=== PATIENT | female | born 1965 | race Caucasian/White ===

== ENCOUNTER → 2016-11-18 | Day surgery (SDC) | payer OTHER ==
[2016-11-16 15:32] VITALS: BMI 29.0
[~2016-11-18] VITALS: Ht 152.4 cm; Wt 68.2 kg
[~2016-11-18] MED LIST: ATROPINE SULFATE 0.1 MG/ML 5ML SYR IV PRN; BIOTCAP2 PO; BUPR-83 PO; CHOL20007 PO; CYCL10TA6 PO; CYNI1000 INJ; DIAZ10TA3 PO; DICL-201 PO; DIPH25CA37 PO; DULO60CA44 PO; ELUX1TAB2 PO; EpHEDrine SULFATE INJ 50 MG/ML AMP IV PRN; FSMD/70 PO; GLYCOPYRROLATE INJ 0.2 MG/ML VIAL ONE; HYDR200T5 PO; HYDR50CA PO; KETAMINE HCL INJ 50 MG/ML 10 ML VIAL ONE; LEVO200T PO; LORA10TA44 PO; MIDAZOLAM HCL 1 MG/ML 2ML VIAL ONE; OXYC20TA50 PO; PANT40TA PO; POTA10CA28 PO; PROPOFOL IV EMULSION 10 MG/ML 20 ML VIAL IV ONE; SODIUM CHLORIDE 0.9% 500ML 500 ML IV ONE; TOPI200T6 PO; TYLOTC500 PO; VNTHFA/IN INH; ZIPR1CAP6 PO; ZNTT/150 PO; ZOLP10TA PO; [UNRECOGNIZED DRUG - CODE] IV
[2016-11-18 09:30] VITALS: Ht 152.4 cm; Wt 68.2 kg
--- NOTE | 2016-11-18 10:06 | Endo History and Physical ---
History & Physical Date of Service: Nov 18, 2016. Chief Complaint: ABD PAIN Referring Physician: CHAPARRITA ANN History of Present Illness 51 yo with substernal burning and epigastric pain presenting for EGD Past Medical History Gastrointestinal Disorder, Blood Dyscrasias, Seizure Disorder, Hypertension, Depression Past Surgical History Hx Cardiac Surgery: No Hx Internal Defibrillator: No Hx Pacemaker: No Hx Abdominal Surgery: No Hx of Implantable Prosthesis: No Hx Post-Op Nausea and Vomiting: No Hx Cancer Surgery: Yes (VARSHA BSO) Hx Thoracic Surgery: No Hx Orthopedic: Yes (LT KNEE SCOPE, RT WRIST CYST REMOVAL) Hx Urinary Tract Surgery: No Family History None Social History Smoking Status: Never Smoker Hx Substance Use: No Hx Alcohol Use: Yes (OCCASIONAL) Allergies Coded Allergies: Amitriptyline (Verified Allergy, Unknown, NIGHT TERRORS AND HALLUCINATIONS , 11/18/16) Lidocaine (Verified Allergy, Unknown, "STOPPED HEART" DURING DENTAL PROCEDURE, 11/18/16) Sulfa Antibiotics (Verified Allergy, Unknown, DIFFICULTY BREATHING AND ITCHING, 11/18/16) Current Medications Reported Home Medications Medications Dose Route/Sig Max Daily Dose Days Date Category Dose Instructions Flexeril (Cyclobenzaprine Hcl) 10 Mg Tab 10 Mg PO TID PRN 11/16/16 Reported Oxycontin (Oxycodone Hcl) 20 Mg Tab 20 Mg PO Q12 PRN 11/16/16 Reported Fosamax+D 70MG/2800 Iu (Alendronate Sodium/Vitamin D3) 70 Mg Tab 1 Tablet PO WK 11/16/16 Reported TUESDAY Allergy (Loratadine) 10 Mg Tab 1 Tab PO QAM 11/16/16 Reported Viberzi (Eluxadoline) 100 Mg Tab 100 Mg PO QAM 11/16/16 Reported Vitamin D3 (Cholecalciferol) 2,000 Unit Tab 1 Tab PO QPM 11/16/16 Reported Micro-K Ext Rel (Potassium Chloride) 10 Meq Capcr 10 Meq PO BID 11/16/16 Reported Voltaren (Diclofenac Sodium) 75 Mg Tabcr 75 Mg PO BID 11/16/16 Reported WITH FOOD Wellbutrin (Bupropion HCl) 100 Mg Tab 100 Mg PO BID 11/16/16 Reported Geodon (Ziprasidone Hcl) 40 Mg Cap 40 Mg PO HS 11/16/16 Reported Topamax (Topiramate) 200 Mg Tab 200 Mg PO BID 11/16/16 Reported Synthroid (Levothyroxine Sodium) 200 Mcg Tab 200 Mcg PO QAM 11/16/16 Reported Ambien (Zolpidem Tartrate) 10 Mg Tab 10 Mg PO HS 05/06/14 Reported Cyanocobalamin 1,000 Mcg/Ml Inj 1 Ml INJ WK 05/06/14 Reported SUNDAYS Protonix (Pantoprazole Sodium) 40 Mg Tab 40 Mg PO QPM 05/06/14 Reported Biotin 5000 (Biotin) 5 Mg Cap 1 Cap PO QAM 05/06/14 Reported Tylenol (Acetaminophen) 500 Mg Tab 1,000 Mg PO PRIOR TO BENLYSTA 05/06/14 Reported Benadryl (Diphenhydramine Hcl) 25 Mg Cap 1 Cap PO PRIOR TO BENLYSTA 05/06/14 Reported Benlysta (Belimumab) 400 Mg Inj 700 Mg IV Q 4 WEEKS 05/06/14 Reported Zantac (Ranitidine HCl) 150 Mg Tab 150 Mg PO BID 05/06/14 Reported Valium (Diazepam) 10 Mg Tab 10 Mg PO Q8H PRN 05/06/[address] WITH MEDICATION Ventolin Hfa (Albuterol) 200 Puffs/06654 Mcg Aers 2 Puffs INH Q4H PRN 05/06/14 Reported Plaquenil (Hydroxychloroquine Sulfate) 200 Mg Tab 200 Mg PO BID 05/06/14 Reported Cymbalta (Duloxetine Hcl) 60 Mg Cap 60 Mg PO QAM 05/06/14 Reported Vistaril (Hydroxyzine Pamoate) 50 Mg Cap 2 Cap PO HS 05/06/14 Reported Vital Signs Weight (Kilograms): 68.18 Height (Feet): 5 Height (Inches): 0 Date Time Temp Pulse Resp B/P Pulse Ox O2 Delivery O2 Flow Rate FiO2 11/18/16 09:31 36.5 81 18 139/86 99 Room Air Physical Exam General Appearance: WD/WN, no apparent distress Respiratory/Chest: Auscultation: breath sounds normal, CTA except as noted, no wheezing Cardiovascular: Apical Impulse: not displaced Heart Auscultation: RRR, normal S1, normal S2 Abdomen: Bowel Sounds: normal Inspection & Palpation: soft, non-distended, no tenderness, guarding & rebound Assessment and Plan 51 yo presenting for EGD due to abdominal pain and epigastric burning
--- NOTE | 2016-11-18 10:59 | GI REPORT ---
Procedure Date: 11/18/2016 10:01 AM Procedure: Upper GI endoscopy Indications: Iron deficiency anemia Medicines: General Anesthesia Complications: No immediate complications. Estimated blood loss: None. Estimated Blood Loss: Estimated blood loss: none. Procedure: Pre-Anesthesia Assessment: - Pre-Anesthesia Assessment: - Prior to the procedure, a History and Physical was performed, and patient medications, allergies and sensitivities were reviewed. The patient's tolerance of previous anesthesia was reviewed. Please see [facility] for complete details. - The risks and benefits of the procedure and the sedation options and risks were discussed with the patient. All questions were answered and informed consent was obtained. - Patient identification and proposed procedure were verified prior to the procedure by the physician and the nurse. The procedure was verified in the pre-procedure area in the procedure room. After obtaining informed consent, the endoscope was passed carefully and meticuously under direct vision and only advanced when the lumen was clearly identified, C02 insuflation was utilized throughout the entirity of the procedure. Throughout the procedure, the patient's blood pressure, pulse, and oxygen saturations were monitored continuously. After obtaining informed consent, the endoscope was passed under direct vision. Throughout the procedure, the patient's blood pressure, pulse, and oxygen saturations were monitored continuously. The scope was introduced through the mouth, and advanced to the second part of duodenum. The upper GI endoscopy was accomplished without difficulty. The patient tolerated the procedure well. Findings: The examined esophagus was normal. The entire examined stomach was normal. The examined duodenum was normal. Impression: - Normal esophagus. - Normal stomach. - Normal examined duodenum. - No specimens collected. Recommendation: - Discharge patient to home. - Return to referring physician as previously scheduled. - Continue present medications. - Consider impedance pH Marko Long MD 11/18/2016 10:58:46 AM This report has been signed electronically. Note Initiated On: 11/18/2016 10:01 AM I attest to the content of the Intraoperative Record and orders documented therein, exceptions below
--- NOTE | 2016-11-18 11:00 | Discharge Instructions ---
Endoscopy Patient Instructions Date / Procedure(s) Performed Nov 18, 2016. EGD Allergy Information Coded Allergies: Amitriptyline (Verified Allergy, Unknown, NIGHT TERRORS AND HALLUCINATIONS , 11/18/16) Lidocaine (Verified Allergy, Unknown, "STOPPED HEART" DURING DENTAL PROCEDURE, 11/18/16) Sulfa Antibiotics (Verified Allergy, Unknown, DIFFICULTY BREATHING AND ITCHING, 11/18/16) Discharge Date / Findings Nov 18, 2016. Normal examination Provider Instructions Activity Restrictions - No exercising or heavy lifting for 24 hours. - Do not drink alcohol the day of the procedure. - Do not drive a car or operate machinery until the day after the procedure. - Do not make any important decisions or sign important papers in 24 hours after the procedure. Following Day: - Return to full activity which may include returning to work/school. Diet Start your diet with liquids and light foods (jello, soup, juice, toast). Then eat your usual diet if not nauseated. Treatment For Common After Affects For mild abdominal pain, bloating, or excessive gas: - Rest - Eat lightly - Lie on right side Follow-Up Information Follow-up with CHAPARRITA ANN as scheduled Anesthesia Information What You Should Know You have had a procedure that required some medicine to reduce anxiety and discomfort. This treatment is called moderate sedation. After receiving the treatment, you may be sleepy, but you will be able to breathe on your own. The effects of the treatment may last for several hours. Follow these instructions along with Activity/Diet recommendations noted above: * Do NOT do anything where dizziness or clumsiness would be dangerous. * Rest quietly at home today, then you can be up and about tomorrow. * Have a responsible person stay with you the rest of today. * You may have had an I.V. today. If so, you may take the dressing off later today. Recommendations Call your doctor if: * Trouble breathing * Continuous vomiting for more than 24 hours * Temperature above 101 degrees * Severe abdominal pain or bloating * Pain not relieved by pain medicine ordered * There is increased drainage or redness from any incision * A large amount of rectal bleeding greater than 2-3 tablespoons. (If you had a polyp/s removed or have hemorrhoids, a small amount of blood - from the rectum is to be expected.) * You have any unanswered questions or concerns. IN THE EVENT OF A SERIOUS EMERGENCY, GO TO THE NEAREST EMERGENCY ROOM Your discharge instructions were prepared by provider Marko Long. Patient Instructions Signature Page E[facility] [place] Patient (or Guardian) Signature/Date: I have read and understand the instructions given to me by my caregivers. Caregiver/RN/Doctor Signature/Date: The above-named patient and/or guardian has received patient instructions on this date. + Original Patient Signature Page (only) stays with chart. Please make copy for patient.
[2016-11-18 11:07] VITALS: BP 144/93; PULSE 81; O2SAT 99
--- NOTE | 2016-11-18 11:20 | Anesthesiology Progress Note ---
Anesthesia Post Op Note Date & Time Nov 18, 2016 at 11:19 Vital Signs Pain Intensity: 0 Vital Signs Past 12 Hours Date Time Temp Pulse Resp B/P Pulse Ox O2 Delivery O2 Flow Rate FiO2 11/18/16 11:07 81 18 144/93 99 Room Air 11/18/16 10:52 75 18 154/88 99 Room Air 11/18/16 10:37 83 20 115/74 96 Room Air 11/18/16 09:31 36.5 81 18 139/86 99 Room Air Notes Mental Status: alert / awake / arousable, participated in evaluation Pt Amnestic to Procedure: Yes Nausea / Vomiting: adequately controlled Pain: adequately controlled Airway Patency, RR, SpO2: stable & adequate BP & HR: stable & adequate Hydration State: stable & adequate Anesthetic Complications: no major complications apparent
== END | disposition home or self-care (01) ==
LOC: C.GI 09:07
PROVIDERS: ATTEND Internal Medicine
DX: D50.9 Iron deficiency anemia, unspecified (principal); E03.9 Hypothyroidism, unspecified; G40.909 Epilepsy, unspecified, not intractable, without status epilepticus; I10 Essential (primary) hypertension; F32.9 Major depressive disorder, single episode, unspecified; J45.909 Unspecified asthma, uncomplicated; Z79.899 Other long term (current) drug therapy; Z98.890 Other specified postprocedural states; Z88.2 Allergy status to sulfonamides; K21.9 Gastro-esophageal reflux disease without esophagitis